=== PATIENT | male | born 1960 | race Caucasian/White ===

== ENCOUNTER 2018-04-16 08:09 | Emergency (ER) | payer OTHER ==
[2018-04-16 08:41] LABS: Absolute Lymphocytes (CBC) 1.7 K/uL (0.7-4.9); Absolute Monocytes 0.7 K/uL (0.1-1.3); Absolute Neutrophil 7.2 K/uL (1.8-8.0); Basophils % 0.5 % (0-1.3); Eosinophils % 1.3 % (0-4.4); Lymphocytes % 16.9 % (15.3-44.8); MPV 10.2 fL (7.6-11.3); Monocytes % 7.4 % (3.3-12.3); RBC Red Blood Cell Count 4.67 M/uL (4.33-5.43)
[2018-04-16] MEDS ORDERED: ONDANSETRON 4 MG/2 ML VIAL ONE (08:43)
[2018-04-16] MEDS ORDERED: MORPHINE 4 MG/ML SYR ONE (08:43)
[2018-04-16 08:57] LABS: BUN Blood Urea Nitrogen 7 mg/dL (7-18); Bicarbonate 26 mmol/L (21-32); Glucose Level 115 mg/dL (74-106); Potassium 4.1 mmol/L (3.5-5.1); Sodium Level 139 mmol/L (136-145)
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
--- NOTE | 2018-04-16 12:26 | EKG ---
Test Date: 2018-04-16 Test Time: 08:18:55 Emergency Services Professional: SHAVON MEASUREMENT RESULTS: Intervals: Rate: 61 [place]: 138 QRSD: 82 QT: 404 QTc: 406 [place]: P: 57 [place]: 138 QRS: 51 T: 45 INTERPRETIVE STATEMENTS: Normal sinus rhythm Normal ECG No previous ECG available for comparison Electronically Signed On 04-16-18 12:25:35 PROGRAM SERVICES ASSISTANT by Hakeem Mar
== END 2018-04-16 10:33 | disposition home or self-care (01) ==
LOC: ER 08:09
DX: S20.20XA Contusion of thorax, unspecified, initial encounter (principal); M46.1 Sacroiliitis, not elsewhere classified; V49.40XA Driver injured in collision with unspecified motor vehicles in traffic accident, initial encounter
CPT/HCPCS: 36415; 70450; 71260; 72125; 74177; 80048; 85025; 86850; 86900; 86901; 93005; 96374; 96375; 99284; J2405; Q9967

== ENCOUNTER 2018-06-04 06:15 | Day surgery (SDC) | payer OTHER ==
[2018-06-04] MEDS ORDERED: Ringers Lactate 1,000 ML IV ONE (06:52)
[2018-06-04] MEDS ORDERED: PROPOFOL 200 MG/20 ML VIAL IV ONE ×2 (07:42→08:33)
[2018-06-04] MEDS ORDERED: LIDOCAINE 1% MPF 5 ML VIAL ONE (07:42)
--- NOTE | 2018-06-04 08:58 | OP ---
Surgeon: Rosalino Bautista MD Procedure To Be Performed: Colonoscopy. Performing Physician: Rosalino Bautista M.D. Indication For Procedure: Screening. Plan For Anesthesia: Monitored anesthesia care. Complexity: Average. Technique: After obtaining informed consent from the patient and explaining risks and complications, which include, but are not limited to bleeding, infection, perforation, and anesthesia complication, the patient was placed in left lateral position and sedation was given. From then on, a digital rec anne-marie exam was performed. Then, the scope was inserted into the rectum and carefully guided up until t he cecum. The cecum was identified by the appendiceal orifice and ileocecal valve. Quality of prep according to Neola prep score; right side was 1, middle 2, left 2, equal to 5/9. Scope withdrawal t jessica was 11 minutes. Findings: 1.Digital rectal exam revealed a smooth, but slightly enlarged prostate. 2.No gross lesion seen in the entire colon. 3.Retroflexion revealed grade 1 internal hemorrhoids. Complications: None. Tolerance To Anesthesia: Excellent. Postoperative Diagnoses: 1.No gross lesion in the colon. 2.Questionable prostatic enlargement. Plan: Return to GI clinic in 2 to 3 weeks. Repeat colonoscopy in 3 to 4 years due to the less than ideal prep. Follow up with PCP to assess if any further prostate examination needs to be done. US/SHAAN Voice ID: [id number] Report ID: [id number]
== END 2018-06-04 09:05 | disposition home or self-care (01) ==
LOC: OR 06:15
PROVIDERS: ATTEND Internal Medicine Gastroenterology
PROC: 0DJD8ZZ Inspection of Lower Intestinal Tract, Via Natural or Artificial Opening Endoscopic (ICD-10-PCS; principal; 2018-06-04 08:00)
DX: Z12.11 Encounter for screening for malignant neoplasm of colon (principal); Z80.0 Family history of malignant neoplasm of digestive organs; K21.9 Gastro-esophageal reflux disease without esophagitis; K64.0 First degree hemorrhoids
CPT/HCPCS: J2704

== ENCOUNTER 2020-01-28 10:55 | Emergency (ER) | payer OTHER ==
--- NOTE | 2020-01-28 11:15 | RAD REPORT ---
EXAM DESCRIPTION: CT - Head Brain Wo Cont - 01/28/2020 11:09 am CLINICAL HISTORY: PAIN Fall, trauma, pain COMPARISON: No comparisons TECHNIQUE: All CT scans are performed using dose optimization technique as appropriate and may inclu de automated exposure control or mA/KV adjustment according to patient size. FINDINGS: No intracranial hemorrhage, hydrocephalus or extra-axial fluid collection.No areas of brai n edema or evidence of midline shift. The paranasal sinuses and mastoids are clear. The calvarium is intact. Small posterior scalp hematoma . IMPRESSION: No acute intracranial abnormality.
--- NOTE | 2020-01-28 11:29 | EDPHYS ---
Physician Documentation [facility] Name: Nathan Golden Age: 59 yrs Sex: Male : 1960 Arrival Date: 01/28/2020 Time: 10:56 Bed 8 Private MD: ED Physician Mukund Rebolledo HPI: 01/27 11:26 This 59 yrs old Male presents to ER via Ambulatory with complaints of ma2 Dizziness. 11:26 The patient presents with trauma. Onset: The symptoms/episode began/occurred suddenly, ma2 1 hour(s) ago. Context: fell hit head from standing. Associated signs and symptoms: Pertinent negatives: ataxia, confusion, diaphoresis, focal weakness. Severity of symptoms: At their worst the symptoms were mild in the emergency department the symptoms have resolved. The patient has not experienced similar symptoms in the past. Historical: - Allergies: 10:58 No Known Allergies; sv - Immunization history:: Adult Immunizations up to date. - Social history:: Smoking status: . - Family history:: not pertinent. ROS: 11:26 Constitutional: Negative for fever, chills, and weight loss, Cardiovascular: Negative ma2 for chest pain, palpitations, and edema, Respiratory: Negative for shortness of breath, cough, wheezing, and pleuritic chest pain, Abdomen/GI: Negative for abdominal pain, nausea, diarrhea, and constipation, MS/Extremity: Negative for injury and deformity, Skin: Negative for injury, rash, and discoloration, Neuro: Negative for headache, weakness, numbness, tingling, and seizure. 11:26 All other systems are negative. Exam: 11:26 Constitutional: This is a well developed, well nourished patient who is awake, alert, ma2 and in no acute distress. Eyes: Pupils equal round and reactive to light, extra-ocular motions intact. Lids and lashes normal. Conjunctiva and sclera are non-icteric and not injected. Cornea within normal limits. Periorbital areas with no swelling, redness, or edema. ENT: Nares patent. No nasal discharge, no septal abnormalities noted. Tympanic membranes are normal and external auditory canals are clear. Oropharynx with no redness, swelling, or masses, exudates, or evidence of obstruction, uvula midline. Mucous membranes moist. Chest/axilla: Normal chest wall appearance and motion. Nontender with no deformity. No lesions are appreciated. Cardiovascular: Regular rate and rhythm with a normal S1 and S2. No gallops, murmurs, or rubs. Normal PMI, no JVD. No pulse deficits. Respiratory: Lungs have equal breath sounds bilaterally, clear to auscultation and percussion. No rales, rhonchi or wheezes noted. No increased work of breathing, no retractions or nasal flaring. Abdomen/GI: Soft, non-tender, with normal bowel sounds. No distension or tympany. No guarding or rebound. No evidence of tenderness throughout. Skin: Warm, dry with normal turgor. Normal color with no rashes, no lesions, and no evidence of cellulitis. MS/ Extremity: Pulses equal, no cyanosis. Neurovascular intact. Full, normal range of motion. Neuro: Awake and alert, GCS 15, oriented to person, place, time, and situation. Cranial nerves II-XII grossly intact. Motor strength 5/5 in all extremities. Sensory grossly intact. Cerebellar exam normal. Normal gait. Vital Signs: 10:58 BP 173 / 99; Pulse 60; Resp 16; Temp 97.4; Pulse Ox 99% ; sv 11:00 BP 158 / 97; Pulse 62; Resp 16; Pulse Ox 100% on R/A; vg1 MDM: 10:57 Patient medically screened. ma2 11:26 Differential diagnosis: head injury. Data reviewed: vital signs, nurses notes. ma2 Counseling: I had a detailed discussion with the patient and/or guardian regarding: the historical points, exam findings, and any diagnostic results supporting the discharge/admit diagnosis, the presence of at least one elevated blood pressure reading (>120/80) during this emergency department visit, the need for outpatient follow up. Response to treatment: the patient's symptoms have resolved after treatment. 01/27 10:57 Order name: CT Head Brain wo Cont; Complete Time: 11:16 ma2 Administered Medications: No medications were administered Disposition: 01/28/20 11:28 Discharged to Home. Impression: Acute post-traumatic headache. - Condition is Stable. - Discharge Instructions: Head Injury, Adult. - Medication Reconciliation Form, Thank You Letter, Antibiotic Education, Prescription Opioid Use form. - Follow up: Private Physician; When: Tomorrow; Reason: Continuance of care. Signatures: Dispatcher [employer] Marianne Marcum RN Mukund Nunn MD MD ma2 Hayley La RN RN vg1 Corrections: (The following items were deleted from the chart) 11:36 11:28 01/28/2020 11:28 Discharged to Home. Impression: Acute post-traumatic headache. vg1 Condition is Stable. Forms are Medication Reconciliation Form, Thank You Letter, Antibiotic Education, Prescription Opioid Use. Follow up: Private Physician; When: Tomorrow; Reason: Continuance of care. maElizabeth
--- NOTE | 2020-01-28 11:29 | ER ---
Nurse's Notes [facility] Name: Nathan Golden Age: 59 yrs Sex: Male : 1960 Arrival Date: 01/28/2020 Time: 10:56 Bed 8 Private MD: Diagnosis: Acute post-traumatic headache Presentation: 01/27 10:57 Chief complaint: Patient states: was playing dodgeball today and dodged a ball and fell sv backwards. Hit his head on the ground, denies LOC. c/o dizziness and nausea since. Coronavirus screen: Client denies travel out of the [place] in the last 14 days. At this time, the client does not indicate any symptoms associated with coronavirus-19. Ebola Screen: No symptoms or risks identified at this time. Risk Assessment: Do you want to hurt yourself or someone else? Patient reports no desire to harm self or others. Onset of symptoms was January 28, 2020. 10:57 Method Of Arrival: Ambulatory sv 10:57 Acuity: ISABEL 3 sv 10:58 Initial Sepsis Screen: Does the patient meet any 2 criteria? No. Patient's initial sv sepsis screen is negative. Does the patient have a suspected source of infection? No. Patient's initial sepsis screen is negative. Historical: - Allergies: 10:58 No Known Allergies; sv - Immunization history:: Adult Immunizations up to date. - Social history:: Smoking status: . - Family history:: not pertinent. Screenin:00 Abuse screen: Denies threats or abuse. Denies injuries from another. Nutritional sv screening: No deficits noted. Tuberculosis screening: No symptoms or risk factors identified. Fall Risk None identified. Assessment: 11:00 General: Appears comfortable, Behavior is calm, cooperative. Pain: Complains of pain in vg1 back of head and lower back Pain currently is 1 out of 10 on a pain scale. Pain began 2 hours ago. Neuro: Level of Consciousness is awake, alert, obeys commands, Oriented to person, place, time, situation, Speech is normal. Neuro: Reports dizziness, when standing. Cardiovascular: Patient's skin is warm and dry. Respiratory: Airway is patent Respiratory effort is even, unlabored, Respiratory pattern is regular, symmetrical. GI: No signs and/or symptoms were reported involving the gastrointestinal system. : No signs and/or symptoms were reported regarding the genitourinary system. EENT: No signs and/or symptoms were reported regarding the EENT system. Derm: Skin is pink, warm \T\ dry. Musculoskeletal: Range of motion: intact in all extremities. 11:35 Reassessment: Patient appears in no apparent distress at this time. No changes from sv previously documented assessment. Patient and/or family updated on plan of care and expected duration. Pain level reassessed. Patient is alert, oriented x 3, equal unlabored respirations, skin warm/dry/pink. Vital Signs: 10:58 BP 173 / 99; Pulse 60; Resp 16; Temp 97.4; Pulse Ox 99% ; sv 11:00 BP 158 / 97; Pulse 62; Resp 16; Pulse Ox 100% on R/A; vg1 ED Course: 10:56 Patient arrived in ED. sv 10:56 Mukund Rebolledo MD is Attending Physician. [facility] 10:57 Arm band placed on. sv 10:58 Triage completed. sv 11:00 Hayley La RN is Primary Nurse. sv 11:00 Patient has correct armband on for positive identification. Bed in low position. Call sv light in reach. Pulse ox on. NIBP on. 11:08 CT Head Brain wo Cont In Process Unspecified. EDMS 11:35 No provider procedures requiring assistance completed. Patient did not have IV access sv during this emergency room visit. Administered Medications: No medications were administered Outcome: 11:28 Discharge ordered by . ma2 11:35 Discharged to home ambulatory, with family. sv 11:35 Condition: stable 11:35 Discharge instructions given to patient, Instructed on discharge instructions, follow up and referral plans. Demonstrated understanding of instructions, follow-up care. 11:36 Patient left the ED. vg1 Signatures: Dispatcher [employer] EDMarianne Motta RN RN sv Alzahri, Mohammad, MD MD ma2 Garcia, Victoria, RN RN vg1
[2020-01-28 12:02] VITALS: TEMP 97.4
[2020-01-28 12:04] VITALS: BP 158/97; O2SAT 100
== END 2020-01-28 11:36 | disposition home or self-care (01) ==
LOC: ER 10:55
DX: G44.319 Acute post-traumatic headache, not intractable (principal); W19.XXXA Unspecified fall, initial encounter; Y93.89 Activity, other specified; Y92.9 Unspecified place or not applicable
CPT/HCPCS: 70450; 99283

== ENCOUNTER 2020-11-23 11:08 | Inpatient (IN) | payer OTHER ==
[2020-11-23 12:13] LABS: Absolute Lymphocytes (CBC) 0.8 K/uL (0.7-4.9); Basophils % 1.1 % (0-1.3); Hematocrit 43.4 % (39.6-49.0); Lymphocytes % 7.2 % (15.3-44.8); MPV 8.4 fL (7.6-11.3); RBC Red Blood Cell Count 4.66 M/uL (4.33-5.43)
[2020-11-23] MEDS ORDERED: METHYLPREDNISOLONE 125 MG INJ ONE (12:14)
--- NOTE | 2020-11-23 12:21 | RAD REPORT ---
EXAM DESCRIPTION: Phoebe Single View11/23/2020 12:15 pm CLINICAL HISTORY: Cough COMPARISON: none FINDINGS: Moderate bilateral pulmonary opacities. The heart is normal size IMPRESSION: Moderate bilateral pulmonary opacities probably pneumonia
[2020-11-23 12:34] LABS: ALT/SGPT 85 U/L (12-78); AST/SGOT 34 U/L (15-37); Albumin 2.7 g/dL (3.4-5.0); Alkaline Phosphatase 134 U/L (45-117); BUN Blood Urea Nitrogen 10 mg/dL (7-18); Bicarbonate 25 mmol/L (21-32); Bilirubin Direct 0.2 mg/dL (0-0.2); Bilirubin Total 0.6 mg/dL (0.2-1.0); Ferritin 1190.5 ng/mL (26-388); Glucose Level 98 mg/dL (74-106); Potassium 4.3 mmol/L (3.5-5.1); Protein, Total 7.8 g/dL (6.4-8.2); Sodium Level 134 mmol/L (136-145); Troponin (Emerg Dept Use Only) < 0.02 ng/mL (0.0-0.045)
--- NOTE | 2020-11-23 12:58 | RAD REPORT ---
EXAM DESCRIPTION: CT - Chest For Pe Angio - 11/23/2020 12:47 pm CLINICAL HISTORY: Cough;Dyspnea COMPARISON: No comparisons FINDINGS: Chest Wall: No suspicious thyroid nodules or pathologic lymphadenopathy. Lungs: Moderate emphysema. There is some scattered ground-glass opacities as well as dependent airspa ce disease. No edema. No consolidative pneumonia is identified. Pleura: No significant effusions or pneumothorax. Mediastinum/xin: No pathologic lymphadenopathy. Pulmonary arteries/Aorta: No filling defect identified. No aortic aneurysm. Heart: No significant pericardial effusion. Normal heart size. Upper abdomen: No acute abnormality. Bones: No acute abnormality. IMPRESSION: Negative for pulmonary embolism. Emphysema with mild scattered ground-glass opacities th at could reflect multifocal pneumonia, including Covid-19.
--- NOTE | 2020-11-23 13:10 | EDPHYS ---
Physician Documentation [facility] Name: Nathan Golden Age: 59 yrs Sex: Male : 1960 Arrival Date: 11/23/2020 Time: 11:31 Bed 5 Private MD: ED Physician Patrice Hernandez HPI: 11/23 11:54 This 59 yrs old Male presents to ER via Wheelchair with complaints of rn Shortness Of Breath. 11:54 The patient has shortness of breath at rest, with light activity. Onset: The rn symptoms/episode began/occurred 1 week(s) ago. Duration: The symptoms are continuous. The patient's shortness of breath is aggravated by exertion, light activity, is alleviated by rest. Associated signs and symptoms: Pertinent positives: chest pain, non-productive cough, Pertinent negatives: fever, hemoptysis, loss of consciousness. Severity of symptoms: At their worst the symptoms were moderate in the emergency department the symptoms are unchanged. The patient has not experienced similar symptoms in the past. The patient has not recently seen a physician. Patient reports sick for about 10 days now, multiple family members with Covid, he has not been tested, increased shortness of breath and fatigue, worse with exertion.. Historical: - Allergies: 11:43 No Known Allergies; ss - Home Meds: 11:43 None [Active]; ss - PMHx: 11:43 None; ss - PSHx: 11:43 None; ss - Immunization history:: Client reports having NOT received the Covid vaccine. - Social history:: Smoking status: Patient/guardian denies using tobacco, but has a distant history of tobacco abuse. - Family history:: not pertinent. - Hospitalizations: : No recent hospitalization is reported. ROS: 11:56 Constitutional: Positive for fever and chills Eyes: Negative for injury, pain, redness, rn and discharge, ENT: Negative for injury, pain, and discharge, Neck: Negative for injury, pain, and swelling, Cardiovascular: Positive for chest pain Respiratory: Positive for shortness of breath and cough Abdomen/GI: Negative for abdominal pain, nausea, vomiting, diarrhea, and constipation, Back: Negative for injury and pain, MS/Extremity: Negative for injury and deformity, Skin: Negative for injury, rash, and discoloration, Neuro: Negative for headache, numbness, tingling, and seizure. 11:56 All other systems are negative. Exam: 11:56 Constitutional: This is a well developed, well nourished patient who is awake, alert, rn moderate tachypnea Head/Face: Normocephalic, atraumatic. Eyes: Periorbital areas with no swelling, redness, or edema. ENT: No stridor Cardiovascular: Regular rate and rhythm. No pulse deficits. Respiratory: Moderate tachypnea, diminished at bases. Abdomen/GI: Soft, non-tender Skin: Warm, dry MS/ Extremity: Pulses equal, no cyanosis. Neuro: Awake and alert, GCS 15 13:05 ECG was reviewed by the Attending Physician. rn Vital Signs: 11:40 BP 151 / 98; Pulse 91; Resp 27; Temp 99.1(O); Pulse Ox 88% on R/A; ss 11:55 Pulse Ox 84% on R/A; sv 12:30 BP 119 / 78; Pulse 76; Resp 24; Pulse Ox 92% on 3 lpm NC; sv 11:55 Pt placed on O2 \T\ 3L per NC, sat up to 92%. sv MDM: 11:32 Patient medically screened. rn 13:05 Differential diagnosis: Bronchitis Chronic Obstructive Pulmonary Disease Myocardial rn Infarction pneumonia, Pneumothorax pulmonary edema, Pulmonary Embolism reactive airway disease, Sepsis Covid. Data reviewed: vital signs, nurses notes, lab test result(s), EKG, radiologic studies, CT scan, plain films. 13:08 Data interpreted: color television console monitor: rate is 76 beats/min, rhythm is normal sinus rhythm, rn regular, with no ectopy, Interpretation: normal rate, normal rhythm, Pulse oximetry: on room air is 84 %. Interpretation: hypoxia. Plan: O2 by NC applied. Test interpretation: by ED physician or midlevel provider: ECG, plain radiologic studies, Chest x-ray shows bilateral pulmonary infiltrate. Counseling: I had a detailed discussion with the patient and/or guardian regarding: the historical points, exam findings, and any diagnostic results supporting the discharge/admit diagnosis, lab results, radiology results, the need for further work-up and treatment in the hospital. Response to treatment: There is no appreciated change of the patient's symptoms at this time, and as a result, I will admit patient. Admission orders: after a detailed discussion of the patient's condition and case, the admit orders are written by me. ED course: Patient with moderate Covid pneumonia, oxygen saturation on room air is 84%, CT chest negative for PE. Will admit to Dr. Butts for further care. 11/23 11:42 Order name: BMP rn 11/23 11:42 Order name: Blood Culture Adult (2) 11/23 11:42 Order name: C-Reactive Protein 11/23 11:42 Order name: CBC with Diff; Complete Time: 12:35 11/23 11:42 Order name: D-Dimer; Complete Time: 12:35 11/23 11:42 Order name: Ferritin; Complete Time: 12:35 11/23 11:42 Order name: LFT's; Complete Time: 12:35 11/23 11:42 Order name: Lactate; Complete Time: 18:43 11/23 11:42 Order name: Procalcitonin; Complete Time: 13:00 11/23 11:42 Order name: Troponin (emerg Dept Use Only); Complete Time: 12:35 11/23 11:43 Order name: Basic Metabolic Panel; Complete Time: 12:35 [facility] 11/23 11:43 Order name: Blood Culture [facility] 11/23 11:43 Order name: C-Reactive Protein; Complete Time: 12:35 [facility] 11/23 11:42 Order name: CXR XRAY; Complete Time: 12:35 11/23 11:42 Order name: EKG; Complete Time: 11:44 11/23 11:42 Order name: Cardiac monitoring; Complete Time: 12:02 11/23 12:35 Order name: CT Chest For PE Angio; Complete Time: 13:00 11/23 13:30 Order name: Diet Regular; Complete Time: 13:31 11/23 13:34 Order name: SARS-COV-2 RT PCR; Complete Time: 18:43 [facility] 11/23 16:44 Order name: Lactate Sepsis 2 HR Follow-up; Complete Time: 18:43 [facility] 11/24 03:09 Order name: CBC with Automated Diff [facility] 11/24 03:21 Order name: Basic Metabolic Panel [facility] 11/24 07:08 Order name: Liver (Hepatic) Function [facility] 11/24 07:08 Order name: C-Reactive Protein [facility] 11/24 08:53 Order name: Glucose, Ancillary Testing [facility] 11/24 12:16 Order name: Glucose, Ancillary Testing [facility] 11/24 17:01 Order name: Glucose, Ancillary Testing [facility] 11/23 11:42 Order name: Droplet/Contact Precautions; Complete Time: 12: rn 11/23 11:42 Order name: EKG - Nurse/Tech; Complete Time: 12: rn 11/23 11:42 Order name: IV Start; Complete Time: 12: rn 11/23 11:42 Order name: Labs collected and sent; Complete Time: 12: rn 11/23 11:42 Order name: O2 Per Protocol; Complete Time: 11: rn 11/23 11:42 Order name: O2 Sat Monitoring; Complete Time: :49 rn EC:05 Rate is 75 beats/min. Rhythm is regular. QRS [place] is Normal. [place] interval is normal. QRS rn interval is normal. QT interval is normal. No Q waves. T waves are Normal. No ST changes noted. Clinical impression: Normal ECG. Interpreted by me. Reviewed by me. Administered Medications: 11:58 Drug: SOLU-Medrol (methylPrednisoLONE) 125 mg Route: IVP; Site: right forearm; iw 12:06 Follow up: Response: No adverse reaction sv 19:22 Drug: NS 0.9% 1000 ml Route: IV; Rate: 1000 ml; Site: right forearm; bs2 Disposition Summary: 11/23/20 13:10 Hospitalization Ordered Hospitalization Status: Inpatient Admission rn Provider: Laverne Butts rn Condition: Stable rn Problem: new rn Symptoms: are unchanged rn Bed/Room Type: Standard rn Location: Telemetry/MedSurg (Inpatient)(11/24/20 16:41) dw Room Assignment: 410(11/24/20 16:41) dw Diagnosis - Pneumonia due to SARS-associated coronavirus rn - Hypoxemia rn Forms: - Medication Reconciliation Form rn - SBAR form rn Signatures: Dispatcher [employer] [facility] Magaly Stafford RN RN dw Williams, Irene RN RN iw Patrice Hernandez MD MD rn Smirch, Shelby, RN RN ss Smith, Bridget, RN RN bs2 Marianne Crespo RN sv Corrections: (The following items were deleted from the chart) 12:09 11:43 CORONAVIRUS+MR.LAB.BRZ ordered. [facility] 14:53 13:10 Telemetry/MedSurg (Inpatient) [facility] 13:10 rn ss 11/24 16:41 11/23 14:53 [facility] ER [facility] dw 11/24 16:11/23 14:53 [facility]
--- NOTE | 2020-11-23 13:10 | ER ---
Nurse's Notes [facility] Name: Nathan Golden Age: 59 yrs Sex: Male : 1960 Arrival Date: 11/23/2020 Time: 11:31 Bed 5 Private MD: Diagnosis: Pneumonia due to SARS-associated coronavirus;Hypoxemia Presentation: 11/23 11:40 Chief complaint: Patient states: Shortness of breath, fever, body aches, loss of taste/ ss smell and productive cough that began 9-10 days ago. + exposure to covid. Coronavirus screen: Client presents with at least one sign or symptom that may indicate coronavirus-19. Standard/surgical mask placed on the client. Provider contacted for isolation considerations. Ebola Screen: Patient denies exposure to infectious person. Patient denies travel to an Ebola-affected area in the 21 days before illness onset. Initial Sepsis Screen: Does the patient meet any 2 criteria? RR > 20 per min. HR > 90 bpm. Does the patient have a suspected source of infection? Yes: Productive cough/pneumonia. Risk Assessment: Do you want to hurt yourself or someone else? Patient reports no desire to harm self or others. Onset of symptoms was November 13, 2020. 11:40 Acuity: ISABEL 2 ss 11:40 Method Of Arrival: Wheelchair ss Triage Assessment: 12:00 Respiratory: the patient has moderate shortness of breath. iw Historical: - Allergies: 11:43 No Known Allergies; ss - Home Meds: 11:43 None [Active]; ss - PMHx: 11:43 None; ss - PSHx: 11:43 None; ss - Immunization history:: Client reports having NOT received the Covid vaccine. - Social history:: Smoking status: Patient/guardian denies using tobacco, but has a distant history of tobacco abuse. - Family history:: not pertinent. - Hospitalizations: : No recent hospitalization is reported. Screenin:59 Abuse screen: Denies threats or abuse. Denies injuries from another. Nutritional iw screening: No deficits noted. Tuberculosis screening: No symptoms or risk factors identified. Fall Risk IV access (20 points). Assessment: 11:59 General: Appears in no apparent distress. Behavior is calm, cooperative. General: iw Reports chills for feeling ill for. Pain: Denies pain. Neuro: Level of Consciousness is awake, alert, obeys commands, Oriented to person, place, time, situation, Moves all extremities. Full function. Cardiovascular: Patient's skin is warm and dry. Rhythm is regular. Respiratory: Reports shortness of breath on exertion cough that is Airway is patent Respiratory effort is even, unlabored, GI: Abdomen is flat, non-distended. Derm: Skin is intact, is healthy with good turgor. Musculoskeletal: Range of motion: intact in all extremities. Vital Signs: 11:40 BP 151 / 98; Pulse 91; Resp 27; Temp 99.1(O); Pulse Ox 88% on R/A; ss 11:55 Pulse Ox 84% on R/A; sv 12:30 BP 119 / 78; Pulse 76; Resp 24; Pulse Ox 92% on 3 lpm NC; sv 11:55 Pt placed on O2 \T\ 3L per NC, sat up to 92%. sv ED Course: 11:31 Patient arrived in ED. bd 11:32 Patrice Hernandez MD is Attending Physician. rn 11:42 Triage completed. ss 11:43 Arm band placed on right wrist. ss 11:45 Sulma Phelps, RN is Primary Nurse. iw 11:45 Patient has correct armband on for positive identification. Placed in gown. Bed in low sv position. Call light in reach. library monitor on. Pulse ox on. NIBP on. Door closed. Head of bed elevated. 11:45 First set of blood cultures drawn by me, COVID swab sent to lab. sv 11:55 Second set of blood cultures drawn by me. Inserted saline lock: 20 gauge in right sv forearm, using aseptic technique. Blood collected. Flushed right forearm with 5 ml normal saline. 12:05 C-Reactive Protein Sent. sv 12:06 Blood Culture Adult (2) Sent. sv 12:06 BMP Sent. sv 12:11 EKG done, by ED staff, reviewed by Patrice Hernandez MD. 5 12:14 CXR XRAY In Process Unspecified. EDMS 12:[address] via wheelchair. sv 12:47 CT Chest For PE Angio In Process Unspecified. EDMS 13:09 Laverne Butts MD is Hospitalizing Provider. rn 13:10 No provider procedures requiring assistance completed. Patient admitted, IV remains in iw place. 19:42 Primary Nurse role handed off by Sulma Phelps, RN mw2 Administered Medications: 11:58 Drug: SOLU-Medrol (methylPrednisoLONE) 125 mg Route: IVP; Site: right forearm; iw 12:06 Follow up: Response: No adverse reaction sv 19:22 Drug: NS 0.9% 1000 ml Route: IV; Rate: 1000 ml; Site: right forearm; bs2 Outcome: 13:10 Decision to Hospitalize by Provider. rn 13:10 Admitted to ER Hold. Please see [facility] for further documentation. iw 13:10 Condition: good 11/24 17:56 Patient left the ED. hb Signatures: Dispatcher [employer] EDMS Zuleyka De La Rosa Stephanie, RN RN Sulma Phelps, ZACK DIXON iw Patrice Hernandez MD MD rn Smirch, Shelby, RN RN ss Baxter, Heather, RN RN Anabela Sorto [facility] Nidhi Macias mw2 Faustina Euceda RN RN bs2 Corrections: (The following items were deleted from the chart) 11/23 12:16 11:55 Pulse Ox 84% RA; Pt placed on O2, sat up to 92%.; sv sv
[2020-11-23] MEDS ORDERED: ONDANSETRON 4 MG/2 ML VIAL IV PRN (14:54)
[2020-11-23] MEDS ORDERED: NA CHLORIDE 0.9% 250 ML ONE (15:30)
[2020-11-23 17:08] VITALS: BMI 26.6
[2020-11-23] MEDS ORDERED: AZITHROMYCIN IV 500 MG in NA CHLORIDE 0.9% 250 ML IVPB ONE (19:00)
[2020-11-23] MEDS ORDERED: NA CHLORIDE 0.9% 1,000 ML ONE (19:31)
[2020-11-23] MEDS: METHYLPREDNISOLONE 40 MG INJ IV SCH (20:00)
[2020-11-23] MEDS: CEFTRIAXONE/SWI 1gm 1 GM/10 ML SYR IVP SCH (20:00)
[2020-11-23] MEDS ORDERED: CEFTRIAXONE 1000 MG/VIAL ONE (20:02)
[2020-11-23] MEDS ORDERED: APIXABAN 5 MG TABLET ONE (20:03)
[2020-11-23] MEDS ORDERED: METHYLPREDNISOLONE 40 MG INJ ONE (20:03)
[2020-11-23] MEDS: APIXABAN 5 MG TABLET PO SCH (20:42)
[2020-11-23] MEDS ORDERED: CEFTRIAXONE 1 GM/NS 50 ML 1 GM/50 ML BAG IV SCH (21:00)
[2020-11-24] MEDS: METHYLPREDNISOLONE 40 MG INJ IV SCH ×3 (00:48→17:00)
[2020-11-24] MEDS ORDERED: METHYLPREDNISOLONE 125 MG INJ ONE ×2 (00:53→07:56)
[2020-11-24 02:57] LABS: Absolute Lymphocytes (CBC) 0.6 K/uL (0.7-4.9); Basophils % 0.1 % (0-1.3); Hematocrit 36.4 % (39.6-49.0); Lymphocytes % 7.9 % (15.3-44.8); MPV 8.5 fL (7.6-11.3); RBC Red Blood Cell Count 3.89 M/uL (4.33-5.43)
[2020-11-24 03:21] LABS: BUN Blood Urea Nitrogen 11 mg/dL (7-18); Bicarbonate 26 mmol/L (21-32); Glucose Level 224 mg/dL (74-106); Sodium Level 137 mmol/L (136-145)
[2020-11-24] MEDS ORDERED: GLUCAGON 1 MG/VIAL IM PRN (04:49)
[2020-11-24] MEDS ORDERED: D50W 25 GM/50 ML SYRINGE IV PRN (04:49)
--- NOTE | 2020-11-24 06:13 | HP ---
Date of Admission: 11/23/2020 Chief Complaint: Cough, congestion, fever. History Of Present Illness: This is 59-year-old male patient who came into the emergency room with 9 days history of cough, congestion, body aches, headaches and fever. The patient's symptoms have not improved in last 9 days and his oxygen saturation was 79% last night. Today, his daughter called my office and she was advised to have patient come to emergency room and after the patient was evaluate d in the ER he was admitted to the hospital with COVID-19 infection and COVID-19 pneumonia. I saw nikki manuel in emergency room. He was lying in bed, not in distress. Allergies: NO KNOWN ALLERGIES. Medications: Does not take any medications. Past Medical History: Significant for restless leg syndrome, impaired fasting glucose, mixed hyperli pidemia, gastroesophageal reflux disease. Past Surgical History: Tonsillectomy, hernia repair, wrist surgery. Family History: Father has history of gout, mother with hypertension. Brother, diverticulosis. Social History: Prior history of smoking. Use of alcohol, 2 beers and 1 mixed drink on a weekly bas is. Physical Examination: Vital Signs: Upon admission, temperature 98.3, pulse 64, respiratory rate 20, blood pressure 102/69, oxygen saturation 94% on 2-1/2 L nasal cannula oxygen. General: Awake, alert, oriented, not in distress. HEENT: Head atraumatic, normocephalic. Conjunctivae nonerythematous. Sclerae white. Mouth, no thr ush or edema noted. Ears/Nose, no mass, lesion, discharge noted. Neck: Supple. No JVD, lymph nodes, bruit, thyromegaly noted. Lungs: Bilateral good equal air entry. Clear to auscultation. No rhonchi. No rales. Heart: Normal heart sounds, no murmur or gallop. Abdomen: Soft, bowel sounds normal. No guarding, rigidity, tenderness, mass, hepatosplenomegaly, dis tention, or bruit noted. Extremities: No leg edema. No calf tenderness. Skin: No rash, ulcer, cellulitis. Lymphatics: No lymph node enlargement in neck, supraclavicular, infraclavicular region. Neuro: No focal neurological deficit. Chest: Unremarkable. External Genitalia: Deferred. Rectal: Deferred. Laboratory Data: White count 11.4, hemoglobin 14.9, platelets 344. D-dimer 1057. Sodium 134, potas sium 4.3, chloride 102, bicarb 25, BUN 10, creatinine 0.90, glucose 98. Lactic acid 2.5. Procalcito maile less than 0.05. AST 34, ALT 85, alkaline phosphatase 134. Troponin less than 0.02. Ferritin 11 90. CRP 182. Chest x-ray shows changes of emphysema and bilateral lung infiltrate. CAT scan of the chest per PE protocol was negative for pulmonary embolism, and shows bilateral non-ground glass opac ities. Patient's COVID test was positive. Impression: 1.COVID-19 infection. 2.COVID-19 pneumonia. 3.Acute respiratory failure with hypoxia. 4.Impaired fasting glucose. 5.Mixed hyperlipidemia. 6.Gastroesophageal reflux disease. 7.Restless leg syndrome. Plan: We will go ahead and admit the patient to hospital for further evaluation and management of th is problem. The patient is appropriate for inpatient and is [facility] We will go ahead and continue oxygen replacement therapy. Consult Dr. Orozco from [facility]. Start the patient on empiric antibiotic, azithromycin, ceftriaxone. We will start him on ant icoagulation medication, Eliquis 5 mg 2 times a day and IV steroid Solu-Medrol 40 mg every 8 hours. We will monitor his fingerstick blood sugar with sliding scale insulin. I will see him tomorrow for followup. Details and plan of treatment discussed with the patient and his daughter. ANDRADE/MODL Voice ID: [id number]
[2020-11-24 06:58] LABS: ALT/SGPT 83 U/L (12-78); AST/SGOT 32 U/L (15-37); Albumin 2.3 g/dL (3.4-5.0); Alkaline Phosphatase 120 U/L (45-117); Bilirubin Direct 0.1 mg/dL (0-0.2); Bilirubin Total 0.3 mg/dL (0.2-1.0); Protein, Total 6.5 g/dL (6.4-8.2)
[2020-11-24] MEDS: INSULIN -REGULAR HUMAN 50 UNIT/0.5 ML ML SQ SCH ×4 (07:30→20:03)
[2020-11-24] MEDS ORDERED: APIXABAN 5 MG TABLET ONE (07:56)
[2020-11-24] MEDS ORDERED: CEFTRIAXONE/SWI 1gm 1 GM/10 ML SYR ONE (07:56)
--- NOTE | 2020-11-24 08:15 | P.CNS ---
Date of Consult: 11/24/20 Reason for Consult: COVID penumonia Chief Complaint: SOB History of Present Illness: AGe 59 aW COVID penumonia sick past 10 days Hypoxic Allergies No Known Allergies Allergy (Verified 06/04/18 06:55) Home Medications: NK [No Home Meds] 06/04/18 - Past Medical/Surgical History -: RLS -: GERD -: Tonsillectomy -: Hernia - Social History Smoking Status: Former smoker Caffeine use: Yes Review of Systems General: Weakness Respiratory: Shortness of Breath Physical Examination Temp Pulse Resp BP Pulse Ox 98.1 F 55 18 114/71 88 L 11/24/20 02:00 11/24/20 06:00 11/24/20 06:00 11/24/20 06:00 11/24/20 06:00 General: Alert, In no apparent distress, Cooperative Laboratory Data (last 24 hrs) 11/23/20 11:55: WBC 11.40 H, Hgb 14.9, Hct 43.4, Plt Count 344 11/23/20 11:55: Sodium 134 L, Potassium 4.3, BUN 10, Creatinine 0.90, Glucose 98 , Total Bilirubin 0.6, AST 34, ALT 85 H, Alkaline Phosphatase 134 H - Problems (1) Pneumonia due to COVID-19 virus Current Visit: Yes Status: Acute Plan: age 59 AW COVID penumonia/ CT rev/ Does not qualify for Barcitinib/ Start on Remdesmir. Mild inc inLFT/ Add Aspirin
[2020-11-24] MEDS: APIXABAN 5 MG TABLET PO SCH ×2 (08:51→20:03)
[2020-11-24] MEDS: CEFTRIAXONE/SWI 1gm 1 GM/10 ML SYR IVP SCH (08:51)
[2020-11-24] MEDS: ASPIRIN EC 81 MG TAB PO SCH (08:51)
[2020-11-24] MEDS ORDERED: ASPIRIN 81 MG CHEWABLE TABLET ONE (09:02)
[2020-11-24] MEDS: AZITHROMYCIN IV 250 MG in NA CHLORIDE 0.9% 250 ML IVPB SCH (09:46)
[2020-11-24] MEDS ORDERED: REMDESIVIR (EUA) 200 MG in NA CHLORIDE 0.9% 250 ML IV ONE (10:00)
[2020-11-24] MEDS ORDERED: INSULIN -REGULAR HUMAN 50 UNIT/0.5 ML ML ONE (12:47)
--- NOTE | 2020-11-24 15:40 | EKG ---
Test Date: 2020-11-23 Test Time: 12:05:10 Program Mgr: LILY MEASUREMENT RESULTS: Intervals: Rate: 75 CT: 130 QRSD: 80 QT: 382 QTc: 426 Gibson: P: 54 CT: 130 QRS: 64 T: 52 INTERPRETIVE STATEMENTS: Sinus rhythm with premature atrial complexes Otherwise normal ECG Compared to ECG 04/16/2018 08:18:55 Atrial premature complex(es) now present Electronically Signed On 11-24-20 15:37:14 CDT by Hakeem Mar
[2020-11-25] MEDS: METHYLPREDNISOLONE 40 MG INJ IV SCH ×3 (00:28→17:13)
[2020-11-25 06:07] LABS: ALT/SGPT 108 U/L (12-78); AST/SGOT 33 U/L (15-37); Albumin 2.4 g/dL (3.4-5.0); Alkaline Phosphatase 110 U/L (45-117); BUN Blood Urea Nitrogen 15 mg/dL (7-18); Bicarbonate 23 mmol/L (21-32); Bilirubin Total 0.3 mg/dL (0.2-1.0); Glucose Level 187 mg/dL (74-106); Potassium 4.8 mmol/L (3.5-5.1); Protein, Total 6.4 g/dL (6.4-8.2); Sodium Level 135 mmol/L (136-145)
--- NOTE | 2020-11-25 07:44 | PN ---
Date of Progress Note: 11/24/2020 Subjective: The patient was seen this morning for followup, lying in bed, not in distress. Vital si gns reviewed. No new complaints or problems reported. Physical Examination: HEENT: Examination unremarkable. Lungs: Clear to auscultation, not in any respiratory distress but some scattered rales unchanged fro m yesterday. Heart: Sounds normal. Abdomen: Soft. Bowel sounds normal. No guarding, rigidity, tenderness, distention. Extremities: No leg edema. Laboratory Data: White count 7.1, hemoglobin 12.7, platelets 340. Impression: 1.COVID-19 infection. 2.COVID-19 pneumonia. 3.Acute respiratory failure with hypoxia. 4.Impaired fasting glucose. Plan: We will go ahead and continue current medications. Continue oxygen and IV steroids per order. Continue anticoagulation therapy. We will continue to follow up with Dr. Orozco for further jaci gement. Monitor fingerstick blood sugar with sliding scale insulin per order. ANDRADE/MODL Voice ID: [id number] Report ID: [id number]
[2020-11-25] MEDS: INSULIN -REGULAR HUMAN 50 UNIT/0.5 ML ML SQ SCH ×4 (08:23→21:00)
[2020-11-25] MEDS: CEFTRIAXONE/SWI 1gm 1 GM/10 ML SYR IVP SCH (08:25)
[2020-11-25] MEDS: ASPIRIN EC 81 MG TAB PO SCH (08:25)
[2020-11-25] MEDS: APIXABAN 5 MG TABLET PO SCH ×2 (08:26→20:37)
[2020-11-25] MEDS: REMDESIVIR (EUA) 100 MG in NA CHLORIDE 0.9% 250 ML IV SCH (08:37)
[2020-11-25] MEDS: AZITHROMYCIN IV 250 MG in NA CHLORIDE 0.9% 250 ML IVPB SCH (08:37)
--- NOTE | 2020-11-25 10:50 | RAD REPORT ---
EXAM DESCRIPTION: RAD - Chest Single View - 11/25/2020 10:31 am CLINICAL HISTORY: covid Chest pain. COMPARISON: Chest Single View dated 11/23/2020 FINDINGS: Portable technique limits examination quality. Since 11/23/2020, mild worsening is seen in bilateral pulmonary opacities. The heart is normal in siz e. No displaced fractures. IMPRESSION: Mild worsening in lung aeration is seen since comparative study.
[2020-11-26] MEDS: METHYLPREDNISOLONE 40 MG INJ IV SCH ×3 (00:12→16:50)
[2020-11-26 05:53] LABS: Absolute Lymphocytes (CBC) 0.9 K/uL (0.7-4.9); Basophils % 0.3 % (0-1.3); Hematocrit 38.9 % (39.6-49.0); MPV 8.8 fL (7.6-11.3)
[2020-11-26 06:15] LABS: ALT/SGPT 87 U/L (12-78); AST/SGOT 12 U/L (15-37); Albumin 2.5 g/dL (3.4-5.0); Alkaline Phosphatase 110 U/L (45-117); BUN Blood Urea Nitrogen 16 mg/dL (7-18); Bicarbonate 26 mmol/L (21-32); Bilirubin Total 0.3 mg/dL (0.2-1.0); Glucose Level 162 mg/dL (74-106); Magnesium 2.4 mg/dL (1.8-2.4); Potassium 4.6 mmol/L (3.5-5.1); Protein, Total 6.8 g/dL (6.4-8.2); Sodium Level 134 mmol/L (136-145)
[2020-11-26] MEDS ORDERED: MAGNESIUM HYDROXIDE 8% 30 ML PO ONE (07:22)
[2020-11-26] MEDS: INSULIN -REGULAR HUMAN 50 UNIT/0.5 ML ML SQ SCH ×4 (07:30→21:01)
--- NOTE | 2020-11-26 07:34 | PN ---
Date of Progress Note: 11/25/2020 Subjective: The patient was seen this morning for followup. No new complaints or problems reported. He was lying in bed, not in any distress. Objective: Vital Signs: Reviewed. HEENT: Unremarkable. Lungs: Clear to auscultation. Heart: Heart sounds normal. Abdomen: Soft, bowel sounds normal. No guarding, rigidity, tenderness, or distention. Extremities: No leg edema. Laboratory Data: Sodium 135, potassium 4.8, chloride 106, bicarb 23, BUN 15, creatinine 0.82, glucos e 187. Other chest x-ray shows mild worsening of bilateral infiltrate. Impression: 1.COVID-19 infection. 2.COVID-19 pneumonia. 3.Acute respiratory failure with hypoxia. 4.Emphysema. Plan: We will go ahead and continue current oxygen replacement therapy. Continue remdesivir, IV isidoro roids, and oral anticoagulation therapy. Details were discussed with Dr. Orozco and I will see him tomorrow for followup. ANDRADE/MODL Voice ID: [id number] Report ID: [id number]
[2020-11-26 09:00] LABS: Blood Morphology Comment NOT SEEN (NOT SEEN); Platelet Estimate ADEQ
[2020-11-26] MEDS: AZITHROMYCIN IV 250 MG in NA CHLORIDE 0.9% 250 ML IVPB SCH (09:18)
[2020-11-26] MEDS: REMDESIVIR (EUA) 100 MG in NA CHLORIDE 0.9% 250 ML IV SCH (09:19)
[2020-11-26] MEDS: CEFTRIAXONE/SWI 1gm 1 GM/10 ML SYR IVP SCH (09:20)
[2020-11-26] MEDS: ASPIRIN EC 81 MG TAB PO SCH (09:21)
[2020-11-26] MEDS: APIXABAN 5 MG TABLET PO SCH ×2 (09:21→19:48)
[2020-11-26] MEDS: DOCUSATE NA 100 MG CAP PO SCH ×2 (09:25→19:48)
--- NOTE | 2020-11-26 16:13 | P.PN ---
Subjective Date of Service: 11/26/20 Chief Complaint: Respiratory failure Subjective: Improving Improving oxygen concentrations still remain low Review of Systems General: Weakness Respiratory: Shortness of Breath Physical Examination - Vital Signs Temperature: 97.9 F Blood Pressure: 143/71 Pulse: 66 Respirations: 18 Pulse Ox (%): 94 - Physical Exam General: Oriented x3, Cooperative Assessment & Plan - Problems (Diagnosis) (1) Pneumonia due to COVID-19 virus Current Visit: Yes Status: Acute Plan: Condition stable plan for discharge labs reviewed oxygen ordered
--- NOTE | 2020-11-26 18:46 | PN ---
Date of Progress Note: 11/26/2020 Subjective: Patient was seen this morning for followup, lying in bed, not in distress, sleeping, eas ryan arousable. Objective: Vital Signs: Reviewed. HEENT: Unremarkable. Lungs: Clear to auscultation. Cardiac: Heart sounds normal. Abdomen: Soft. Bowel sounds normal. No guarding, rigidity, tenderness, distention. Extremities: No leg edema. Laboratory Data: White count 13, hemoglobin 13.5, platelets 488. Sodium 134, potassium 4.6, chlorid e 102, bicarb 26, BUN 16, creatinine 0.67, glucose 162. CRP level today 35.5, CRP on 11/23 was 182, and on 11/24, it was 131. Impression: 1.COVID-19 infection. 2.COVID-19 pneumonia. 3.Acute respiratory failure with hypoxia. 4.Emphysema. Plan: Continue current medications. We will continue and follow up with Dr. Orozco and I will see him tomorrow for followup. We will continue current steroid. CRP level has improved. T he patient will be to go home with home oxygen and we will request social service to start making arr angements for home oxygen. There are no signs or symptoms of bleeding complication due to thrombocyt openia. ANDRADE/MODL Voice ID: [id number] Report ID: [id number]
[2020-11-27] MEDS: METHYLPREDNISOLONE 40 MG INJ IV SCH ×3 (00:32→16:31)
[2020-11-27 05:54] LABS: ALT/SGPT 84 U/L (12-78); AST/SGOT 17 U/L (15-37); Albumin 2.7 g/dL (3.4-5.0); Alkaline Phosphatase 102 U/L (45-117); BUN Blood Urea Nitrogen 17 mg/dL (7-18); Bicarbonate 29 mmol/L (21-32); Bilirubin Total 0.3 mg/dL (0.2-1.0); Glucose Level 157 mg/dL (74-106); Potassium 5.1 mmol/L (3.5-5.1); Protein, Total 6.7 g/dL (6.4-8.2); Sodium Level 137 mmol/L (136-145)
[2020-11-27] MEDS: INSULIN -REGULAR HUMAN 50 UNIT/0.5 ML ML SQ SCH ×4 (07:30→19:48)
[2020-11-27] MEDS: ASPIRIN EC 81 MG TAB PO SCH (09:40)
[2020-11-27] MEDS: APIXABAN 5 MG TABLET PO SCH ×2 (09:40→19:47)
[2020-11-27] MEDS: DOCUSATE NA 100 MG CAP PO SCH ×2 (09:40→19:47)
[2020-11-27] MEDS: CEFTRIAXONE/SWI 1gm 1 GM/10 ML SYR IVP SCH (09:40)
[2020-11-27] MEDS: AZITHROMYCIN IV 250 MG in NA CHLORIDE 0.9% 250 ML IVPB SCH (09:40)
[2020-11-27] MEDS: REMDESIVIR (EUA) 100 MG in NA CHLORIDE 0.9% 250 ML IV SCH (09:44)
--- NOTE | 2020-11-27 10:35 | RAD REPORT ---
EXAM DESCRIPTION: RAD - Chest Single View - 11/27/2020 8:50 am CLINICAL HISTORY: covid Chest pain. COMPARISON: Chest Single View dated 11/25/2020; Chest Single View dated 11/23/2020 FINDINGS: Portable technique limits examination quality. Bilateral pulmonary opacities show slight improvement change since 11/25/2020. The heart is normal in size. No displaced fractures. IMPRESSION: Fractional improvement in lung aeration is seen since 11/25/2020.
--- NOTE | 2020-11-27 22:47 | PN ---
Date of Progress Note: 11/27/2020 Subjective: Patient was seen this morning for followup. He was lying in bed, not in distress. No n ew complaints or problems reported by patient, lying in bed. Objective: Vital Signs: Reviewed. HEENT: Unremarkable. Lungs: Clear to auscultation. Heart: Sounds normal. Abdomen: Soft. Bowel sounds normal. No guarding, rigidity, tenderness, or distention. Extremities: No leg edema. Laboratory Data: Chest x-ray shows fractional improvement today in his infiltrate. Sodium 137, pota ssium 5.1, chloride 102, bicarb 29, BUN 17, creatinine 0.84, glucose 157. AST 17, ALT 84, alkaline p hosphatase 102. CRP was ordered, result pending. Impression: 1.COVID-19 infection. 2.COVID-19 pneumonia. 3.Acute respiratory failure with hypoxia. 4.Impaired fasting glucose. Plan: We will continue current medication. Continue steroid and remdesivir. Tomorrow will be his l ast dose of remdesivir and we will plan to discharge him to go home tomorrow. His oxygen requirement is between 2-3 L/minute and he will need to go home tomorrow with home oxygen. I will see him tomor row for followup. I have informed him that upon discharge when he goes home from the hospital, he should avoid any kind of strenuous activi ty. ANDRADE/MODL Voice ID: [id number] Report ID: [id number]
[2020-11-28] MEDS: METHYLPREDNISOLONE 40 MG INJ IV SCH ×2 (01:01→07:50)
[2020-11-28 07:10] LABS: ALT/SGPT 74 U/L (12-78); AST/SGOT 12 U/L (15-37); Albumin 2.6 g/dL (3.4-5.0); Alkaline Phosphatase 95 U/L (45-117); BUN Blood Urea Nitrogen 17 mg/dL (7-18); Bicarbonate 31 mmol/L (21-32); Bilirubin Total 0.4 mg/dL (0.2-1.0); Glucose Level 144 mg/dL (74-106); Potassium 4.8 mmol/L (3.5-5.1); Protein, Total 6.3 g/dL (6.4-8.2); Sodium Level 135 mmol/L (136-145)
[2020-11-28] MEDS: ASPIRIN EC 81 MG TAB PO SCH (07:50)
[2020-11-28] MEDS: APIXABAN 5 MG TABLET PO SCH (07:50)
[2020-11-28] MEDS: DOCUSATE NA 100 MG CAP PO SCH (07:50)
[2020-11-28] MEDS: INSULIN -REGULAR HUMAN 50 UNIT/0.5 ML ML SQ SCH ×2 (07:51→11:25)
[2020-11-28] MEDS: CEFTRIAXONE/SWI 1gm 1 GM/10 ML SYR IVP SCH (07:51)
[2020-11-28] MEDS: AZITHROMYCIN IV 250 MG in NA CHLORIDE 0.9% 250 ML IVPB SCH (07:52)
[2020-11-28] MEDS: REMDESIVIR (EUA) 100 MG in NA CHLORIDE 0.9% 250 ML IV SCH (09:00)
[2020-11-28 10:41] VITALS: BP 94/63; TEMP 97.7
[2020-11-28 11:26] VITALS: O2SAT 93
--- NOTE | 2020-11-28 11:58 | DS ---
Date of Discharge: 11/28/2020 Disposition: Discharged to go home. Physical Examination: HEENT: Unremarkable. Lungs: Clear to auscultation. Heart: Sounds normal. Abdomen: Soft. Bowel sounds normal. No guarding, rigidity, tenderness, or distention. Extremities: No leg edema. Laboratory Data: Upon admission; white count 11.4, hemoglobin 14.9, platelets 344. Last CBC on 11/01; white count 13, hemoglobin 13.5, platelets 480. Last chemistry today; sodium 135, potassium 4.8, chloride 102, bicarb 31, BUN 17, creatinine 0.81, glucose 144. Liver function tests normal. Hi s CRP when he was admitted was 182 and last CRP yesterday was 16.7. Hospital Course: A 59-year-old male patient admitted to the hospital with complaints of cough, conge stion, fever and low oxygen level. Please see dictated H and P for more information. The patient wa s evaluated in the ER and admitted to the hospital with COVID-19 infection and COVID-19 pneumonia and acute respiratory failure with hypoxia. He remained stable on 3 L nasal cannula oxygen, maintaining adequate oxygenation. He was started on IV steroid and remdesivir. Dr. Orozco was consulted. He was also started on anticoagulation therapy using Eliquis. Overall, his condition has remained stab le and he feels much better now compared to how he was when he first came into the hospital. Discharge Diagnoses: 1.COVID-19 infection. 2.COVID-19 pneumonia. 3.Acute respiratory failure with hypoxia. 4.Impaired fasting glucose. 5.Mixed hyperlipidemia. 6.Gastroesophageal reflux disease. 7.Restless leg syndrome. Discharge Medications And Instructions: 1.Take aspirin 81 mg 1 tablet daily with food for 1 month. 2.Take Eliquis 5 mg 1 tablet 2 times a day for 1 month. 3.Take prednisone 10 mg take 2 tablets by mouth 2 times a day for 1 week, then 2 tablets by mouth da ryan for 1 week, then 1 tablet by mouth daily for 1 week, then half a tablet by mouth daily for 1 week , then stop. The patient to take this with food. 4.Follow up at my office next week on , which is 12/02/2020 and call office for appointment and this will be tele visit. 5.Use oxygen at 3 L/minute per nasal cannula. 6.Monitor the oxygen saturation level few times a day and record it as we will review this informati on at time of your appointment. 7.Avoid any exertion. ANDRADE/MODL Voice ID: [id number] Report ID: [id number]
== END 2020-11-28 12:45 | disposition home or self-care (01) | DRG 177 ==
LOC: ER 11:08 → ERHOLD 14:22 → 4TH 11-24 17:44
PROVIDERS: ADMIT Internal Medicine; ATTEND Internal Medicine
DX: U07.1 COVID-19 (principal); J12.82 Pneumonia due to coronavirus disease 2019; J96.01 Acute respiratory failure with hypoxia; J43.9 Emphysema, unspecified; G25.81 Restless legs syndrome; R73.01 Impaired fasting glucose; E78.2 Mixed hyperlipidemia; K21.9 Gastro-esophageal reflux disease without esophagitis; Z87.891 Personal history of nicotine dependence
CPT/HCPCS: 36415; 71045; 71275; 80048; 80053; 80076; 82728; 82947; 83605; 83735; 84145; 84484; 85025; 85379; 86140; 87040; 93005; 96374; 99285; J0456; J0696; J2920; J2930; J7030; J7050; Q9967; U0003

== ENCOUNTER 2022-10-23 07:37 | Observation (INO) | payer OTHER ==
--- OUTSIDE RECORDS SUMMARY | 2022-10-23 07:39 | XMS REPORT | Continuity of Care Document ---
:1960 Author Organization [facility] t Address [address] [place] [id number] Care Team Providers Name Role Phone Unavailable Unavailable Unavailable Problems This patient has no known problems. Allergies, Adverse Reactions, Alerts This patient has no known allergies or adverse reactions. Medications This patient has no known medications. Procedures This patient has no known procedures. Results This patient has no known results.
[2022-10-23 08:05] LABS: Protime INR 1.02
[2022-10-23 08:08] LABS: Absolute Lymphocytes (CBC) 0.9 K/uL (0.7-4.9); Hematocrit 41.8 % (39.6-49.0); MCV 92.8 fL (80-100); MPV 9.3 fL (7.6-11.3); Platelets 270 thou/uL (152-406); RBC Red Blood Cell Count 4.51 M/uL (4.33-5.43)
[2022-10-23] MEDS ORDERED: NA CHLORIDE 0.9% 1,000 ML ONE (08:26)
[2022-10-23 08:30] LABS: Albumin 3.8 g/dL (3.4-5.0); Bilirubin Direct 0.2 mg/dL (0-0.2); Bilirubin Indirect, Calculated 0.4 mg/dL (0.2-0.8); Bilirubin Total 0.6 mg/dL (0.2-1.0); Potassium 4.1 mEq/L (3.5-5.1); Protein, Total 7.8 g/dL (6.4-8.2); Troponin High Sensitivity 3.4 pg/mL (<58.9)
--- NOTE | 2022-10-23 08:54 | RAD REPORT ---
EXAM DESCRIPTION: CT - Angio Aorta For Dissection - 10/23/2022 8:43 am CLINICAL HISTORY: Chest pain radiating to the back. chest pain, dizziness COMPARISON: No comparisons TECHNIQUE: CT angiography of the aorta was performed with MIPs. All CT scans are performed using dose optimization technique as appropriate and may include automated exposure control or mA/KV adjustment according to patient size. FINDINGS: A left aortic arch is present with bovine branching pattern of the great vessels.No acute aortic finding is seen such as aneurysm, penetrating ulcer or dissection. The celiac axis, SMA, NEO and renal arteries are patent. Mild atherosclerosis of the distal abdominal aorta and iliac vessels. No evidence of pulmonary embolism. Assessment is somewhat limited due to phase of contrast. Moderate COPD. The liver demonstrates no focal mass or biliary dilatation.Diffuse fatty liver.The spleen, pancreas, adrenal glands and kidneys are within normal limits for arterial phase imaging.Benign renal cysts sherry aterally. No bowel obstruction, free fluid or abscess.Scattered colonic diverticulosis is seen with moderate st ool throughout the colon. Normal appendix. No pathologic enlarged lymphadenopathy identified. Mild lumbar degenerative changes. IMPRESSION: No acute aortic finding is demonstrated. Moderate COPD.
--- NOTE | 2022-10-23 09:00 | RAD REPORT ---
EXAM DESCRIPTION: RAD - Chest Single View - 10/23/2022 8:51 am CLINICAL HISTORY: CHEST PAIN Chest pain. COMPARISON: Chest Single View dated 11/27/2020; Chest Single View dated 11/25/2020; Chest Single View dated 11/23/2020 FINDINGS: Portable technique limits examination quality. The lungs are emphysematous but grossly clear. The heart is normal in size. No displaced fractures. IMPRESSION: No acute intrathoracic process suspected.
--- NOTE | 2022-10-23 09:30 | ER ---
Nurse's Notes [facility] Name: Nathan Golden Age: 61 yrs Sex: Male : 1960 Arrival Date: 10/23/2022 Time: 07:37 Bed 6 Private MD: Laverne Butts C Diagnosis: Chest pain, unspecified;Essential (primary) hypertension Presentation: 10/23 07:39 Chief complaint: Patient states: had onset of chest pain and dizziness while at work tf2 this morning; has a recent hx of irregular heartbeat with no formal diagnosis yet. Pt also SOB but this is not new, has had this since having COVID. Pt denies recent illness. Denies N/V/D; rates CP 2/10. Pt is alert, oriented, pink, warm and dry. Coronavirus screen: Client denies travel out of the [place] in the last 14 days. At this time, the client does not indicate any symptoms associated with coronavirus-19. Ebola Screen: No symptoms or risks identified at this time. 07:39 Method Of Arrival: Ambulatory tf2 07:45 Initial Sepsis Screen: Does the patient meet any 2 criteria? No. Patient's initial tf2 sepsis screen is negative. Risk Assessment: Do you want to hurt yourself or someone else? Patient reports no desire to harm self or others. Onset of symptoms was October 23, 2022 at 07:15. Care prior to arrival: None. 07:45 Acuity: ISABEL 3 tf2 Triage Assessment: 08:11 General: Appears in no apparent distress. Behavior is calm. Pain: Complains of pain in tf2 left clavicle and anterior aspect of left upper chest. EENT: No deficits noted. Neuro: No deficits noted. Cardiovascular: Reports chest pain, shortness of breath. Respiratory: Reports shortness of breath Breath sounds are clear. GI: No deficits noted. : No deficits noted. Musculoskeletal: No deficits noted. Historical: - Allergies: 08:11 No Known Allergies; tf2 - PMHx: 08:11 Hypertensive disorder; Hypercholesterolemia; tf2 - PSHx: 08:11 None; tf2 - Immunization history:: Client reports having NOT received the Covid vaccine. - Social history:: Smoking status: Patient/guardian denies using tobacco, but has a distant history of tobacco abuse. - Family history:: not pertinent. - Hospitalizations: : No recent hospitalization is reported. Screenin:22 [facility] ED Fall Risk Assessment (Adult) History of falling in the last 3 months, tf2 including since admission No falls in past 3 months (0 pts) Confusion or Disorientation No (0 pts) Intoxicated or Sedated No (0 pts) Impaired Gait No (0 pts) Mobility Assist Device Used No (0 pt) Altered Elimination No (0 pt) Score/Fall Risk Level 0 - 2 = Low Risk Oriented to surroundings, Maintained a safe environment, Educated pt \T\ family on fall prevention, incl call for assistance when getting out of bed, Assessed \T\ reinforced patient's understanding of fall precautions, Provided non-skid footwear, Hourly rounding (assess needs \T\ fall precautionary measures) done. Abuse screen: Denies threats or abuse. Denies injuries from another. Nutritional screening: No deficits noted. Tuberculosis screening: No symptoms or risk factors identified. Sepsis Screening: . Infection: Patient has no suspected or documented infection. Patient has a negative screen for severe sepsis based on infection criteria. Exposure risk/Travel Screening: None identified. Assessment: 08:59 Reassessment: Back from CT awaiting. Results. tf2 Vital Signs: 07:38 BP 153 / 104; Pulse 85; Resp 16; Temp 98.6(O); Pulse Ox 97% on R/A; tf2 07:45 BP 166 / 99; Pulse 93; Resp 18; Pulse Ox 98% on R/A; tf2 09:03 BP 164 / 106; Pulse 74; Resp 16; Pulse Ox 95% on R/A; tf2 ED Course: 07:39 Patient arrived in ED. am2 07:39 Laverne Butts MD is Private Physician. am2 07:39 Patrice Hernandez MD is Attending Physician. rn 07:40 No apparent distress. Awaiting CT Scan. tf2 07:40 Initial lab(s) drawn, EKG done, by ED staff. tf2 07:40 Inserted saline lock: 18 gauge in left antecubital area, using aseptic technique. tf2 Patient maintains SpO2 saturation greater than 95% on room air. 07:57 Sandhya Arevalo, ZACK is Primary Nurse. tf2 08:09 Triage completed. tf2 08:22 Patient has correct armband on for positive identification. Placed in gown. Bed in low tf2 position. Call light in reach. Side rails up X2. Client placed on continuous cardiac and pulse oximetry monitoring. NIBP monitoring applied. Diet: Patient is NPO. 08:45 CT Aorta for Dissection In Process Unspecified. EDMS 08:52 XRAY Chest (1 view) In Process Unspecified. EDMS 09:29 Laverne Butts MD is Hospitalizing Provider. rn 13:10 No provider procedures requiring assistance completed. Patient admitted, IV remains in tf2 place. Administered Medications: 08:21 Drug: NS 0.9% IV 1000 ml Route: IV; Rate: 1000 ml; Infused Over: 30 mins; Site: left tf2 antecubital; 09:30 Follow up: IV Status: Completed infusion; IV Intake: 1000ml tf2 09:42 Drug: Metoprolol PO 25 mg Route: PO; tf2 13:11 Follow up: Response: No adverse reaction tf2 09:42 Drug: Aspirin PO 81 mg Route: PO; tf2 13:11 Follow up: Response: No adverse reaction tf2 Intake: 09:30 IV: 1000ml; Total: 1000ml. tf2 Outcome: 09:29 Decision to Hospitalize by Provider. rn 13:10 Admitted to ER Hold. Please see [facility] for further documentation. tf2 13:10 Condition: good 13:10 Instructed on the need for admit. 15:20 Patient left the ED. ss Signatures: Dispatcher [employer] Partice Hartman MD MD rn Blanchard, Shelby, RN RN Sarah Gabriel am2 Sandhya Arevalo RN RN tf2
--- NOTE | 2022-10-23 09:30 | EDPHYS ---
Physician Documentation [facility] Name: Nathan Golden Age: 61 yrs Sex: Male : 1960 Arrival Date: 10/23/2022 Time: 07:37 Bed 6 Private MD: Laverne Butts C ED Physician Patrice Hernandez HPI: 10/23 08:02 This 61 yrs old Male presents to ER via Unassigned with complaints of Chest Pain, rn Dizziness. 08:02 The patient or guardian reports chest pain that is located primarily in the substernal rn area. Onset: this morning. The pain does not radiate. Associated signs and symptoms: Pertinent positives: dizziness, palpitations, Pertinent negatives: abdominal pain, diaphoresis, headache, lower extremity swelling, shortness of breath, syncope, vomiting. The chest pain is described as stabbing, pinching. Duration: The patient or guardian reports multiple episodes, that are intermittent. Modifying factors: The symptoms are alleviated by nothing. the symptoms are aggravated by nothing. Severity of pain: At its worst the pain was mild in the emergency department the pain is unchanged. The patient has not experienced similar symptoms in the past. The patient has been recently seen by a physician:. Pt reports chest pain, substernal, non-radiating, feels "pinching", intermittent, began this AM. Just came back from vacation to stressful work. Feels stressed. No fever. NO sob. Seen by Dr. Butts recently and told "irregular heart beat". No abd pain. . Historical: - Allergies: 08:11 No Known Allergies; tf2 - PMHx: 08:11 Hypertensive disorder; Hypercholesterolemia; tf2 - PSHx: 08:11 None; tf2 - Immunization history:: Client reports having NOT received the Covid vaccine. - Social history:: Smoking status: Patient/guardian denies using tobacco, but has a distant history of tobacco abuse. - Family history:: not pertinent. - Hospitalizations: : No recent hospitalization is reported. ROS: 08:02 Constitutional: Negative for fever, chills, and weight loss, Eyes: Negative for injury, rn pain, redness, and discharge, Neck: Negative for injury, pain, and swelling, Cardiovascular: Negative for and edema, Respiratory: Negative for shortness of breath, cough, wheezing, and pleuritic chest pain, Abdomen/GI: Negative for abdominal pain, nausea, vomiting, diarrhea, and constipation, MS/Extremity: Negative for injury and deformity, Skin: Negative for injury, rash, and discoloration, Neuro: Negative for headache, weakness, numbness, tingling, and seizure. Exam: 08:02 Constitutional: This is a well developed, well nourished patient who is awake, alert, rn and in no acute distress. Head/Face: Normocephalic, atraumatic. Chest/axilla: Nontender with no deformity. No lesions are appreciated. Cardiovascular: Regular rate and rhythm. No pulse deficits. Respiratory: Mild tachypnea, no retractions, no wheezing Abdomen/GI: Soft, non-tender Skin: Warm, dry MS/ Extremity: Pulses equal, no cyanosis. Neurovascular intact. Full, normal range of motion. Equal circumference. Neuro: Awake and alert, GCS 15 08:09 ECG was reviewed by the Attending Physician. rn Vital Signs: 07:38 BP 153 / 104; Pulse 85; Resp 16; Temp 98.6(O); Pulse Ox 97% on R/A; tf2 07:45 BP 166 / 99; Pulse 93; Resp 18; Pulse Ox 98% on R/A; tf2 09:03 BP 164 / 106; Pulse 74; Resp 16; Pulse Ox 95% on R/A; tf2 MDM: 07:39 Patient medically screened. rn 09:28 Differential diagnosis: acute myocardial infarction, acute pericarditis, anxiety, rn coronary artery disease chest wall pain, congestive heart failure costochondritis, pleurisy, pneumonia, pneumothorax, pulmonary embolus, stable angina, thoracic aortic disection, unstable angina. HEART Score: History: Slightly Suspicious (0), ECG: Non specific repolarization disturbance / LBTB / PM (1), Age: > 45 and < 65 years (1), Risk Factors: 1 or 2 risk factors (1), Troponin: < or = 1 x Normal Limit (0), Total Score = 3. The patient was given aspirin in the Emergency Department. Data reviewed: vital signs, nurses notes, lab test result(s), EKG, radiologic studies, CT scan, plain films, and as a result, I will admit patient. Consideration of Admission/Observation Patient was admitted/placed on observation. Escalation of care including admission/observation considered. Management of patient was discussed with the following: Primary Care Provider: Dr. Butts contacted, prefers to admit patient for workup, requests ECHO with doppler and stress test ordered in addition to metoprolol 25mg PO BID.. Counseling: I had a detailed discussion with the patient and/or guardian regarding: the historical points, exam findings, and any diagnostic results supporting the discharge/admit diagnosis, lab results, radiology results, the need for further work-up and treatment in the hospital. 10/23 07:52 Order name: Basic Metabolic Panel; Complete Time: 08:46 rn 10/23 07:52 Order name: CBC with Diff; Complete Time: 08:46 rn 10/23 07:52 Order name: LFT's; Complete Time: 08:46 rn 10/23 07:52 Order name: NT PRO-BNP; Complete Time: 08:46 rn 10/23 07:52 Order name: PT-INR; Complete Time: 08:46 rn 10/23 07:52 Order name: Troponin HS; Complete Time: 08:46 rn 10/23 12:25 Order name: Troponin High Sensitivity; Complete Time: 12:33 EDMS 10/23 07:52 Order name: XRAY Chest (1 view); Complete Time: 09:05 rn 10/23 07:52 Order name: CT Aorta for Dissection; Complete Time: 09:05 rn 10/23 07:52 Order name: EKG; Complete Time: 07:53 rn 10/23 09:45 Order name: Diet Heart Healthy; Complete Time: 09:46 bd 10/23 07:52 Order name: Cardiac monitoring; Complete Time: 08:15 rn 10/23 07:52 Order name: EKG - Nurse/Tech; Complete Time: 08:15 rn 10/23 07:52 Order name: IV Saline Lock; Complete Time: 08:15 rn 10/23 07:52 Order name: Labs collected and sent; Complete Time: 08:15 rn 10/23 07:52 Order name: O2 Per Protocol; Complete Time: 08:15 10/23 07:52 Order name: O2 Sat Monitoring; Complete Time: 08:15 rn EC:09 Rate is 92 beats/min. Rhythm is irregular. QRS Benedict is Normal. AK interval is normal. rn QRS interval is normal. QT interval is normal. No Q waves. T waves are Normal. No ST changes noted. Clinical impression: Normal sinus RHythm with sinus arrhythmia. Interpreted by me. Reviewed by me. Administered Medications: 08:21 Drug: NS 0.9% IV 1000 ml Route: IV; Rate: 1000 ml; Infused Over: 30 mins; Site: left tf2 antecubital; 09:30 Follow up: IV Status: Completed infusion; IV Intake: 1000ml tf2 09:42 Drug: Metoprolol PO 25 mg Route: PO; tf2 13:11 Follow up: Response: No adverse reaction tf2 09:42 Drug: Aspirin PO 81 mg Route: PO; tf2 13:11 Follow up: Response: No adverse reaction tf2 Disposition Summary: 10/23/22 09:29 Hospitalization Ordered Hospitalization Status: Observation rn Provider: Laverne Butts rn Condition: Stable rn Problem: new rn Symptoms: have improved rn Bed/Room Type: Standard rn Location: Telemetry/MedSurg (observation)(10/23/22 15:01) bd Room Assignment: 425(10/23/22 15:01) bd Diagnosis - Chest pain, unspecified rn - Essential (primary) hypertension rn Forms: - Medication Reconciliation Form rn - SBAR form rn Signatures: Dispatcher [employer] EDZuleyka Dacosta Roman, MD MD rn Blanchard, Shelby, RN RN Sandhya Oconnor RN RN tf2 Corrections: (The following items were deleted from the chart) 12:48 09:29 Telemetry/MedSurg (observation) rn ss 12:48 09:29 rn ss 15:01 12:48 [facility] ER HOLD ss bd 15:01 12:48 ERHOLD- ss bd
[2022-10-23] MEDS ORDERED: ASPIRIN 81 MG CHEWABLE TABLET ONE (09:50)
[2022-10-23] MEDS ORDERED: METOPROLOL TAR 25 MG TAB ONE (09:50)
[2022-10-23] MEDS ORDERED: ONDANSETRON 4 MG/2 ML VIAL IV PRN (12:16)
[2022-10-23 12:30] VITALS: BMI 27.3
[2022-10-23 21:22] LABS: SARS-CoV-2 Antigen Rapid Res Negative (Negative)
[2022-10-23] MEDS: ATORVASTATIN 40 MG TAB PO SCH (23:13)
[2022-10-23] MEDS: METOPROLOL TAR 25 MG TAB PO SCH (23:14)
--- NOTE | 2022-10-24 03:30 | HP ---
Date of Admission: 10/23/2022 Chief Complaint: Chest pain. History Of Present Illness: This is a 61-year-old very pleasant male patient, who came into emergenc y room with complaints of chest pain that started this morning. The patient says that around 7 o'kasi ck this morning when he was just walking around in his house, he started to have this left parasterna l chest pain associated with some shortness of breath and felt dizzy. Denies any sweating or palpita tion. No nausea, vomiting, diarrhea. No fever, chills, cough, congestion. He came into emergency r oom after he was evaluated. He was admitted to the hospital under my service. The patient reports t hat his chest pain lasted all together about 3 to 4 hours. Denies any aggravating or relieving facto rs for the chest pain. Allergies: NO KNOWN ALLERGIES. Medications: At home: He takes atorvastatin 20 mg daily, losartan 25 mg daily, and omeprazole 40 mg daily. Review of Systems: Cardiovascular: As mentioned above. All other systems reviewed and negative. Past Medical History: Significant for COVID-19 infection on November 23, 2020, restless legs syndrome, impaired fasting glucose, hypertension, hyperlipidemia which is mixed, gastroesophageal reflux disea se. Past Surgical History: Tonsillectomy, hernia repair, and surgery on his wrist. Family History: Father has gout. Mother, diabetes and hypertension. Brother, diverticulosis. Social History: Prior history of smoking, not at present time. Use of alcohol, drinks beer on a wee kly basis. Physical Examination: Vital Signs: Last temperature 99.9, pulse 55, respiratory rate 16, blood pressure 144/73, oxygen sat uration 98%, height 5 feet 7 inches, weight 175 pounds. General: Awake, alert, oriented, not in distress. HEENT: Head atraumatic, normocephalic. Conjunctivae nonerythematous. Sclerae white. Mouth, no thr ush or edema noted. Ears/Nose, no mass, lesion, discharge noted. Neck: Supple. No JVD, lymph nodes, bruit, thyromegaly noted. Lungs: Bilateral good equal air entry. Clear to auscultation. No rhonchi. No rales. Heart: Normal heart sounds, no murmur or gallop. Abdomen: Soft, bowel sounds normal. No guarding, rigidity, tenderness, mass, hepatosplenomegaly, dis tention, or bruit noted. Extremities: No leg edema. No calf tenderness. Skin: No rash, ulcer, cellulitis. Lymphatics: No lymph node enlargement in neck, supraclavicular, infraclavicular region. Neuro: No focal neurological deficit. Chest: Unremarkable. External Genitalia: Deferred. Rectal: Deferred. Laboratory Data: Chest x-ray, no acute cardiopulmonary changes. CAT scan of the aorta per dissectio n protocol was unremarkable for any acute changes. WBC 11.5, hemoglobin 14.1, platelets 270. Sodium 136, potassium 4.1, chloride 106, bicarb 24, BUN 13, creatinine 1.05, glucose 113. Liver function t ests unremarkable. Troponin first set 3.4, second set 4.4, third set 4.2. Impression: 1.Chest pain. 2.Hypertension. 3.Mixed hyperlipidemia. 4.Gastroesophageal reflux disease. 5.Chronic obstructive pulmonary disease. Plan: We will go ahead and admit the patient to hospital for further evaluation and management of th is problem. The patient is appropriate for observation. NC has been ruled out by getting serial car diac enzymes. Consult Cardiology. Echo and Lexiscan stress test was ordered. We will follow up on the results. Continue aspirin and metoprolol per order. The patient's blood pressure when he came t o the ER, highest blood pressure today was 164/106. I have ordered influenza A, B, and COVID-19 test as well as urinalysis considering low-grade fever that he had on his last set of vital signs. I keith l see him tomorrow morning for followup. ANDRADE/MODL Voice ID: [id number]
[2022-10-24 04:04] LABS: Absolute Lymphocytes (CBC) 1.2 K/uL (0.7-4.9); Hematocrit 39.3 % (39.6-49.0); Lymphocytes % 15.7 % (15.3-44.8); MCV 92.8 fL (80-100); MPV 9.5 fL (7.6-11.3); Platelets 226 thou/uL (152-406); RBC Red Blood Cell Count 4.24 M/uL (4.33-5.43)
[2022-10-24 04:26] LABS: Potassium 4.5 mEq/L (3.5-5.1)
[2022-10-24 04:50] LABS: Specific Gravity 1.012 (1.005-1.030); Urine Bacteria None Seen /HPF (<20); Urine Bilirubin NEGATIVE (Negative); Urine Blood Negative (Negative); Urine Clarity Clear (Clear); Urine Color Colorless (Yellow); Urine Glucose NEGATIVE (Negative); Urine Protein NEGATIVE (Negative); Urine RBC None Seen /HPF (None Seen); Urine Urobilinogen Normal (Normal); Urine pH 7.5 (5.0-7.0)
[2022-10-24] MEDS: ASPIRIN EC 81 MG TAB PO SCH (09:49)
[2022-10-24] MEDS: PANTOPRAZOLE 40MG TABLET PO SCH (09:50)
[2022-10-24] MEDS: METOPROLOL TAR 25 MG TAB PO SCH ×2 (09:50→20:59)
--- NOTE | 2022-10-24 13:04 | RAD REPORT ---
EXAM DESCRIPTION: NM - Rest Stress Cardiac Imaging - 10/24/2022 9:03 am CLINICAL HISTORY: Chest pain. COMPARISON: None. TECHNIQUE: The patient was administered 10. mCi of Tc 99m Sestamibi prior to resting SPECT imaging o f the heart. The patient was then administered 30. MCi of Tc 99m Sestamibi following exercise or pha rmacologic stress. Multiplanar SPECT images were reviewed. FINDINGS: Small area of diminished radiotracer uptake involves the anterior left ventricular myocard ium on stress images. Small to moderate area of diminished radiotracer uptake involves inferior septal left ventricular sahara cardium on rest images. These diminished areas of radiotracer persists on stress images. The left ventricular ejection fraction equals 49% IMPRESSION: Small apparent fixed perfusion defect anterior left ventricular myocardium Small to moderate apparent fixed perfusion defect inferior septal left ventricular myocardium The these may indicate infarcts. Attenuation from overlying soft tissue is another consideration There is no evidence of stress-induced ischemia
--- NOTE | 2022-10-24 14:56 | EKG ---
Test Date: 2022-10-23 Test Time: 07:44:15 [employer] Laborer: JIMMY MEASUREMENT RESULTS: Intervals: Rate: 92 IA: 134 QRSD: 72 QT: 358 QTc: 442 [place]: P: 47 IA: 134 QRS: 36 T: 50 INTERPRETIVE STATEMENTS: Normal sinus rhythm with sinus arrhythmia Normal ECG Compared to ECG 11/23/2020 12:05:10 Atrial premature complex(es) no longer present Electronically Signed On 10-24-22 14:54:59 CDT by Cem Clemente
[2022-10-24] MEDS: ATORVASTATIN 40 MG TAB PO SCH (20:59)
--- NOTE | 2022-10-24 21:06 | PN ---
Date of Progress Note: 10/24/2022 Subjective: Patient was seen this morning for followup. He was lying in bed, asymptomatic. No more chest pain overnight. Denies any other new complaints. Objective: Vital Signs: Reviewed. HEENT: Unremarkable. Lungs: Clear to auscultation. Heart: Sounds normal. Abdomen: Soft. Bowel sounds normal. No guarding, rigidity, tenderness, distention. Extremities: No leg edema. Impression: 1.Chest pain. 2.Hypertension. 3.Hyperlipidemia. Plan: Patient was evaluated by biological photographer, Dr. Clemente who has suggested a cardiac cath to be done tomorrow. Stress test was done. Results reviewed and I will order fasting lipid profile for tomorro w. We will continue his statin therapy. Continue aspirin and metoprolol. ANDRADE/MODL Voice ID: [id number] Report ID: [id number]
[2022-10-25] MEDS ORDERED: NA CHLORIDE 0.9% 1,000 ML ONE (05:14)
[2022-10-25 05:17] VITALS: TEMP 98.6
[2022-10-25] MEDS ORDERED: HEPA 1000U/500MLS 2,000 UNIT/1,000 ML BAG IV ONE (06:35)
[2022-10-25] MEDS ORDERED: LIDOCAINE 1% 20 ML MDV ONE (06:35)
[2022-10-25] MEDS ORDERED: FENTANYL CITR 100 MCG/2 ML ONE (06:36)
[2022-10-25] MEDS ORDERED: HEPARIN 5000 UNIT/ML 1 ML VIAL ONE (06:36)
[2022-10-25] MEDS ORDERED: VERAPAMIL HCL 10 MG/4 ML VIAL IV ONE (06:36)
[2022-10-25] MEDS ORDERED: CLOPIDOGREL 75 MG TABLET ONE (06:36)
[2022-10-25] MEDS ORDERED: MIDAZOLAM HCL 2 MG/2 ML INJ ONE (06:36)
[2022-10-25] MEDS ORDERED: HEPARIN 10,000 UNIT/10 ML VIAL IV ONE (06:37)
[2022-10-25] MEDS ORDERED: NITROGLYCERIN/D5W 25 MG/250 ML BTL IV ONE (06:37)
[2022-10-25] MEDS ORDERED: ATROPINE SULF 1 MG/10 ML SYR IV ONE (06:37)
[2022-10-25] MEDS ORDERED: TICAGRELOR 90 MG TABLET PO ONE (06:37)
[2022-10-25] MEDS ORDERED: NITROGLYCERIN 100 MCG/ML SYR (for cath lab use only) IV ONE (06:37)
[2022-10-25] MEDS ORDERED: ASPIRIN 325 MG TAB ONE (06:37)
[2022-10-25] MEDS: PANTOPRAZOLE 40MG TABLET PO SCH (07:30)
--- NOTE | 2022-10-25 08:32 | CON ---
Date of Consultation: 10/23/2022 Reason For Consultation: Chest pain. History Of Present Illness: A 61-year-old male with history of hypertension, dyslipidemia, ex-smoker , quit recently, smoked for many years. Presented with chest pain, retrosternal, no radiation. Pain was intense and by the time he arrived to the emergency room, it faded away and at the time of my ev aluation, he was completely chest pain free. No nausea, vomiting, or diaphoresis. Past Medical History: Hypertension, dyslipidemia. Medications: Refer to reconciliation sheet for detailed list. Allergies: NO KNOWN DRUG ALLERGIES. Family History: No premature coronary artery disease or cancer. Social History: Ex-smoker. Drinks alcohol on a regular basis. Does not use any drugs. Review of Systems: All systems reviewed and they were negative except what mentioned in HPI. Physical Examination: Vital Signs: Reviewed. Head and Neck: Pupils are equal, reactive to light. Intact eye movements. No JVD. No cervical lym phadenopathy. Neck is supple. Thyroid is not enlarged. Lungs: Clear to auscultation bilaterally. No rhonchi, wheezing, or crackles. No accessory muscle u se. Heart: Regular rate and rhythm. No extra sounds. Abdomen: Soft, nontender. Bowel sounds positive. No organomegaly. No masses or hernia. No rigidi ty or rebound. Extremities: No edema, clubbing, or cyanosis. Intact pulses. Skin: No rash. Neurologic: Alert, awake, oriented x3. No acute focal deficits appreciated. Investigations: Cardiac enzymes are negative. Labs were reviewed. Assessment And Plan: 1.Chest pain with multiple risk factors. Admit for observation and if troponin is negative, we will obtain exercise stress test and an echo to further evaluate. Agree with aspirin. 2.Dyslipidemia. Recommended Lipitor 40 mg at bedtime. 3.Hypertension. Blood pressure is acceptable. Continue current management. SR/MODL Voice ID: [id number] Report ID: [id number]
--- NOTE | 2022-10-25 08:38 | PN ---
Date of Progress Note: 10/24/2022 Subjective: Seen by bedside. No further chest pain episodes. He had a stress test with large area of scarring on the heart plus close to [address] depression on the EKG. No nausea, vomiting, or diarrh ea. All other systems reviewed and they were negative. Physical Examination: Vital Signs: Reviewed. Head and Neck: Pupils are equal, reactive to light. Intact eye movements. No JVD. No cervical lym phadenopathy. Neck is supple. Thyroid is not enlarged. Lungs: Clear to auscultation bilaterally. No rhonchi, wheezing, or crackles. No accessory muscle u se. Heart: Regular rate and rhythm. No extra sounds. Abdomen: Soft, nontender. Bowel sounds positive. No organomegaly. No masses or hernia. No rigidi ty or rebound. Extremities: No edema, clubbing, or cyanosis. Intact pulses. Skin: No rash. Neurologic: Alert, awake, oriented x3. No acute focal deficits appreciated. Investigations: Labs were reviewed. Assessment And Plan: 1.Chest pain with abnormal stress test suggesting a scar with active chest pain. Recommend coronary angiogram to further evaluate, keep n.p.o. past midnight, plan for coronary angiogram tomorrow. 2.Hypertension. Blood pressure controlled. 3.Dyslipidemia. Continue statin. SR/MODL Voice ID: [id number] Report ID: [id number]
--- NOTE | 2022-10-25 08:38 | OP ---
Date of Procedure: 10/25/2022 Surgeon: JULIO HUDSON Procedures Performed: 1.Selective coronary angiogram. 2.Left heart catheterization. Indication: Abnormal stress test with chest pain. Access: Right radial artery 6-Uzbek closed with TR band. Complications: None. Bleeding: Less than 20 mL. Anesthesia: Total sedation time was 15 minutes. Description Of Procedure: After risks, benefits, alternatives were explained, the patient agreed to procedure and signed informed consent. The patient was brought into cardiac catheterization laborato , prepped and draped in the usual sterile fashion. Then, I accessed right radial artery using pedi atric micropuncture kit, placed 6-Uzbek Slender sheath, took 5-Uzbek [place] 4.0 catheter into the ao rtic root over a J-wire, engaged the left main, took standard views and engaged the RCA, took standar d views and the catheter was pushed over the wire into the LV, measured the LVEDP and pullback did no t record any gradient. Then, I removed the catheter and sheath, placed TR band with good hemostasis. Findings: 1.Left main is large and normal. 2.LAD; normal. Normal diagonal branches. 3.Left circumflex; dominant and normal. 4.RCA; small, nondominant, and normal. 5.Elevated LVEDP between 20 and 22 mmHg. Conclusion: 1.Normal coronary arteries. 2.Elevated LVEDP. Recommendations: Blood pressure control and search for other causes of chest pain. SR/MODL Voice ID: [id number] Report ID: [id number]
--- NOTE | 2022-10-25 08:41 | PN ---
Date of Progress Note: 10/25/2022 Subjective: Seen by bedside. Doing well. No further chest pain. Status post coronary angiogram wi th normal coronary arteries. Review of Systems: No chest pain, shortness of breath, orthopnea, cough. No nausea, vomiting, diarrhea. All other syst ems reviewed and they were negative. Physical Examination: Vital Signs: Reviewed. Head and Neck: Pupils are equal, reactive to light. Intact eye movements. No JVD. No cervical lym phadenopathy. Neck is supple. Thyroid is not enlarged. Lungs: Clear to auscultation bilaterally. No rhonchi, wheezing, or crackles. No accessory muscle u se. Heart: Regular rate and rhythm. No extra sounds. Abdomen: Soft, nontender. Bowel sounds positive. No organomegaly. No masses or hernia. No rigidi ty or rebound. Extremities: No edema, clubbing, or cyanosis. Intact pulses. Skin: No rash. Neurologic: Alert, awake, oriented x3. No acute focal deficits appreciated. Investigations: Labs were reviewed. Assessment And Recommendations: 1.Chest pain with abnormal stress test and the coronary angiogram showed normal coronary arteries. This abnormality on the stress test is artifact. No further management is needed for this issue and search for other causes of chest pain. From Cardiology standpoint, the patient can be released. 2.Elevated LVEDP on echo. Recommend strict low-salt diet, gentle diuresis, and blood pressure control and follow up as an outpatient. SR/MODL Voice ID: [id number] Report ID: [id number]
--- NOTE | 2022-10-25 08:46 | ECHO ---
HEIGHT: 5 ft 7 in WEIGHT: 175 lb 0 oz DATE OF STUDY: 10/24/[address]: Patrice Hernandez JR, MD 2-DIMENSIONAL: YES M.MODE: YES DOPPLER: YES COLOR FLOW: YES TDS: PORTABLE: YES DEFINITY: BUBBLE STUDY: DIAGNOSIS: CHEST PAIN, DIZZINESS CARDIAC HISTORY: CATHERIZATION: NO SURGERY: NO PROSTHETIC VALVE: NO PACEMAKER: NO MEASUREMENTS (cm) DIASTOLIC (NORMALS) SYSTOLIC (NORMALS) IVSd 1.2 (0.6-1.2) LA Diam 2.2 (1.9-4.0) LVEF 55-60% LVIDd 3.1 (3.5-5.7) LVIDs 1.7 (2.0-3.5) %FS 47% LVPWd 1.3 (0.6-1.2) Ao Diam 2.3 (2.0-3.7) 2 DIMENSIONAL ASSESSMENT: RIGHT ATRIUM: NORMAL LEFT ATRIUM: NORMAL RIGHT VENTRICLE: NORMAL LEFT VENTRICLE: NORMAL TRICUSPID VALVE: MILD TRICUSPID REGURGITATION MITRAL VALVE: MILD MITRAL REGURGITATION PULMONIC VALVE: NORMAL AORTIC VALVE: NORMAL PERICARDIAL EFFUSION: NONE AORTIC ROOT: NORMAL LEFT VENTRICULAR WALL MOTION: NORMAL DOPPLER/COLOR FLOW: MILD MITRAL REGURGITATION. MILD TRICUSPID REGURGITATION COMMENTS: 1. NORMAL LEFT VENTRICULAR EJECTION FRACTION 55-60% 2. NORMAL WALL MOTION 3. NORMAL DIASTOLIC FUNCTION 4. MILD MITRAL REGURGITATION 5. MILD TRICUSPID REGURGITATION TECHNOLOGIST: JOSE CATALAN
--- NOTE | 2022-10-25 08:50 | TREADMILL ---
70% H.R.: 113 85% H.R.: 137 90% H.R.: 145 100% H.R.: 161 DX: CHEST PAIN Date of Study: 10/24/2022 Ht: 5' 7 " Wt: 175 lb 0 oz Consulting Physician: TRISTAN MEDICATIONS: ASPIRIN, LIPITOR, LOPRESSOR, ZOFRAN, PROTONIX HISTORY: 61 YEAR OLD MALE WITH COMPLAINTS OF DIZZINESS. HISTORY OF HYPERTENSION. PATIENT DENIES ALLERGIES. PHYSICIAL EXAMINATION: RESTING B.P.: 142/101 REPEAT BP: 132/79 RESTING H.R.: 70 RESTING EKG: NORMAL SINUS RHYTHM PROTOCOL: CARDIOLITE EXERCISE TIME: 6:29 MAXIMUM HEART RATE: 140 86 % OF PREDICTED B.P. AT PEAK STRESS: 193/88 H.R. AT 1 MINUTE POST EXERCISE: 121 IMPRESSION: CARDIOLITE EXERCISE STRESS TEST WAS PERFORMED. PATIENT COMPLETED EXERCISE TEST. CARDIOLITE INJECTED. SEE NUCLEAR MEDICINE REPORT. NO SUPRAVENTRICULAR TACHYCARDIA, VENTRICULAR TACHYCARDIA, PREMATURE ATRIAL COMPLEXES, PREMATURE VENTRICULAR COMPLEXEWS NOTED. LESS THAN [address] DEPRESSION IN THE INFERIOR LEADS WITH PEAK STRESS.
[2022-10-25] MEDS: METOPROLOL TAR 25 MG TAB PO SCH (09:00)
[2022-10-25] MEDS: ASPIRIN EC 81 MG TAB PO SCH (09:00)
[2022-10-25 09:50] VITALS: O2SAT 97
[2022-10-25 11:57] VITALS: BP 142/77
== END 2022-10-25 14:12 | disposition home or self-care (01) ==
LOC: ER 07:37 → ERHOLD 09:34 → 4TH 15:16
PROVIDERS: ADMIT Internal Medicine; ATTEND Internal Medicine
PROC: 4A023N7 Measurement of Cardiac Sampling and Pressure, Left Heart, Percutaneous Approach (ICD-10-PCS; principal; 2022-10-23)
PROC: B2111ZZ Fluoroscopy of Multiple Coronary Arteries using Low Osmolar Contrast (ICD-10-PCS; 2022-10-23)
PROC: B2151ZZ Fluoroscopy of Left Heart using Low Osmolar Contrast (ICD-10-PCS; 2022-10-23)
DX: R07.9 Chest pain, unspecified (principal); I10 Essential (primary) hypertension; R94.39 Abnormal result of other cardiovascular function study; E78.2 Mixed hyperlipidemia; J44.9 Chronic obstructive pulmonary disease, unspecified; G25.81 Restless legs syndrome; K21.9 Gastro-esophageal reflux disease without esophagitis; Z87.891 Personal history of nicotine dependence; Z79.899 Other long term (current) drug therapy; Z86.16 Personal history of COVID-19; Z20.822 Contact with and (suspected) exposure to COVID-19; Z28.310 Unvaccinated for COVID-19; Z82.49 Family history of ischemic heart disease and other diseases of the circulatory system; Z83.3 Family history of diabetes mellitus
CPT/HCPCS: 93017; 93005; 93306; 85025 ×2; 81001; 80048 ×2; 36415 ×2; 85610; 80061; 80076; 84484 ×3; 83880; 87804 ×2; 71275; 74175; 71045; 93458 ×2; 76937; 78452; 87811; Q9967; C1893; Q9966; J1644; J2001; J2250; J3010; J7030 ×2; A9500; J0461